=== PATIENT | female | born 1960 | race Caucasian/White ===

== ENCOUNTER 2020-02-24 08:09 | Outpatient (CLI) | payer OTHER, SELFPAY ==
--- NOTE | ~2020-02-24 | US_ITS ---
EXAMINATION: US renal BI DATE: 02/24/2020 08:53 INDICATION: Chronic kidney disease stage III. TECHNIQUE: Multiple ultrasound grayscale images of the kidneys were obtained. COMPARISON: None. FINDINGS: The right kidney measures 9.5 x 4.3 x 4.9 cm. The left kidney measures 10.8 x 5.4 x 3.8 cm. The kidne ys demonstrate normal parenchymal echogenicity. There is no hydronephrosis. The bladder is normal. IMPRESSION: 1. Normal kidneys. No hydronephrosis. Reviewed, dictated and finalized at location B.
== END 2020-02-24 08:10 | disposition home or self-care (01) ==
PROVIDERS: PCP Internal Medicine
DX: N18.3 Chronic kidney disease, stage 3 (moderate) (principal); I12.9 Hypertensive chronic kidney disease with stage 1 through stage 4 chronic kidney disease, or unspecified chronic kidney disease; N25.0 Renal osteodystrophy; E21.1 Secondary hyperparathyroidism, not elsewhere classified; N17.9 Acute kidney failure, unspecified; R32 Unspecified urinary incontinence; R80.9 Proteinuria, unspecified; E79.0 Hyperuricemia without signs of inflammatory arthritis and tophaceous disease; E55.9 Vitamin D deficiency, unspecified; E11.22 Type 2 diabetes mellitus with diabetic chronic kidney disease
CPT/HCPCS: 76775

== ENCOUNTER 2024-07-22 08:28 | Outpatient (CLI) | payer OTHER, SELFPAY ==
--- NOTE | ~2024-07-22 | MM_ITS ---
MM stereotactic bx RT, MM post biopsy diagnostic RT, MM stereotactic bx RT add, MM stereotactic speci men RT EXAMINATION: MM stereotactic bx RT, MM post biopsy diagnostic RT, MM stereotactic bx RT add, MM stere otactic specimen RT DATE: Avtar Guevara M.D. INDICATION: Abnormal mass and calcifications in the right breast. Stereotactic core biopsy is reques pamela evaluate for malignancy.] BREAST PARENCHYMAL COMPOSITION: Not dense: There are scattered areas of fibroglandular density. TECHNIQUE AND FINDINGS: The risks and potential benefits of the procedure were discussed with the patient and written informe d consent was obtained. The patient was placed in the prone position clustered at the table with the right breast in compression, and the area of interest was localized and targeted utilizing digital i maging with stereotaxis. After sterile preparation of the skin, 1% lidocaine was utilized for local anesthesia at the skin pun cture site and 1% lidocaine with epinephrine was utilized for deeper local anesthesia/is about the bi opsy site. A 9G Eviva vacuum assisted biopsy needle was advanced to the level of the mass of interes t from a lateral approach utilizing stereotactic guidance and a total of 6 tissue core biopsies were obtained. Subsequently additional site of calcifications was targeted in 6 specimens were obtained wi thout complication. A specimen radiograph demonstrates that the calcifications of interest are included within the tissue cores. A tissue marker clip was then placed at the biopsy site. The needle was removed and hemosta sis was achieved. The patient tolerated the procedure well and there is no evidence of significant i mmediate complication. The patient was given verbal as well as written postprocedural instructions p rior to discharge from the department. Tissue cores were submitted to surgical pathology for histolo gic analysis. A 2-view right unilateral digital mammogram was obtained post procedure and this demonstrates that th e tissue marker clip is in expected position.] IMPRESSION: 1. Successful stereotactic biopsy of calcifications and mass in the lower outer quadrant of the righ t breast with post procedure mammogram for marker placement. Please refer to pathology report for hi stologic analysis. Reviewed, dictated and finalized at location B. IAGE OPERATOR IMPRESSION: 1. Successful stereotactic biopsy of calcifications and mass in the lower oute r quadrant of the right breast with post procedure mammogram for marker placeme nt. Please refer to pathology report for histologic analysis. IMPRESSION: 1. Successful stereotactic biopsy of calcifications and mass in the lower oute r quadrant of the right breast with post procedure mammogram for marker placeme nt. Please refer to pathology report for histologic analysis. IMPRESSION: 1. Successful stereotactic biopsy of calcifications and mass in the lower oute r quadrant of the right breast with post procedure mammogram for marker placeme nt. Please refer to pathology report for histologic analysis.
== END 2024-07-22 08:29 | disposition home or self-care (01) ==
PROVIDERS: PCP Internal Medicine; Visit Provider Internal Medicine
DX: C50.411 Malignant neoplasm of upper-outer quadrant of right female breast (principal); R92.8 Other abnormal and inconclusive findings on diagnostic imaging of breast
CPT/HCPCS: 19081; 19082; 77065; 88305; 88342; 88360

== ENCOUNTER 2024-12-21 08:30 | Outpatient (CLI) | payer BC, SELFPAY ==
--- OUTSIDE RECORDS SUMMARY | 2024-12-21 08:53 | XMS_ITS ---
Author Organization [facility] Address [address] [place] [address] Care Team Providers Care Bariatric Surgeon Name Role Phone RamezNateGeronimo Unavailable [phone] Medications Medication SIG (Take, Route, Frequency, Duration) Notes Start Date End Date Status Allopurinol 100 MG Take 3 tablets by mo uth once daily for 90 Active Vitamin D (Ergocalciferol) 1.25 MG (51672 UT) TAKE 1 CAPSULE BY MOUTH TWICE A WEEK for 92 Active Vitamin D (Ergocalciferol) 73005 UNIT 1 capsule Orally twice a week for 30 days 04/08/2024 07/06/2024 Active Problems Problem Type SNOMED Code ICD Code Onset Dates Problem Status W/U Status Risk Notes Problem Renal osteodystrophy (01334461) Renal osteodystrophy (N25.0) Active confirmed Encounters Encounter Location Date Provider Diagnosis [place] [facility] [address] [facility] [address] [place] [address] 06/24/2024 Geronimo Myrick Chronic kidney disea se, stage 3b N18.32 ; Essential (primary) hypertension I10 ; Type 2 diabetes mellitus with hyperglycemia E11.65 ; Renal osteodystrophy N25.0 ; Other microscopic hematuria R31.29 and Vitamin D deficiency, unspecified E55.9 Assessments Encounter Date Diagnosis (ICD Code) Assessment Notes Treatment Notes Treatment Clinical Notes Section Notes 06/24/2024 Chronic kidney disease, stage 3b (ICD-10 - N18.32) 06/24/2024 Essential (primary) hypertension (ICD-10 - I10) 06/24/2024 Type 2 diabetes mellitus with hyperglycemia (ICD-10 - E11.65) 06/24/2024 Renal osteodystrophy (ICD-10 - N25.0) 06/24/2024 Other microscopic hematuria (ICD-10 - R31.29) 06/24/2024 Vitamin D deficiency, unspecified (ICD-10 - E55.9) Plan Of Treatment No Information Progress Notes * AUDREY BLUNTDOB:1960 (64 yo F)Acc No.[id number]:06/24/2024 Progress Notes Patient: AUDREY BROWER Provider: Delfino LAWSON MD, F.Francesca.C.P, F.A.S.N. :1960 A ge:64 Y S ex:Female Date:06/24/2024 Address:[address] [place] [address] Subjective: * Chief Complaints: * * Medical History: * Medications: T aking Vitamin D (Ergocalciferol) 68796 UNIT Capsule 1 capsule Orally twice a week , stop date 07/06/2024, Taking Vitamin D (Ergocalciferol) 1.25 MG (55537 UT) Capsule TAKE 1 CAPSULE BY MOUTH TWICE A WEEK , Taking Allopurinol 100 MG Tablet Take 3 tablets by mouth once daily Objective: * Vitals: Assessment: * Assessment: 1. C hronic kidney disease, stage 3b - N18.32 2 . E ssential (primary) hypertension - I10 3 . T ype 2 diabetes mellitus with hyperglycemia - E11.65 ? 4 . R enal osteodystrophy - N25.0 5 . O ther microscopic hematuria - R31.29 6 . V itamin D deficiency, unspecified - E55.9 Plan: * Treatment: * Billing Information: * Visit Code: 74071 Office Visit, Est Pt., Level 4. * Procedure Codes: * Electronic signature of Rosa Myrick MD on 12/21/2024 at 08:52 AM CDT Sign off status: Pending * Provider: Delfino LAWSON MD, F.A.C.P, F.A.S.N. Date: 08/25/2023 Generated for Printing/Faxing/eTransmitting on: 0 12/21/2024 08:52 AM CDT
--- OUTSIDE RECORDS SUMMARY | 2024-12-21 08:53 | XMS_ITS | Patient Health Record ---
Author Organization [facility] Address [address] [place] [address] Care Team Providers Care Promotions Coordinator Name Role Phone Geronimo Myrick Unavailable [phone] Reason For Referral No Information Medications Medication SIG (Take, Route, Frequency, Duration) Notes Start Date End Date Status Allopurinol 100 MG Take 3 tablets by mo uth once daily for 90 Active Ergocalciferol 1.25 MG (89383 UT) 1 capsule Orally Once a week for 90 days 09/25/2024 08/21/2025 Active Vitamin D (Ergocalciferol) 1.25 MG (83028 UT) TAKE 1 CAPSULE BY MOUTH TWICE A WEEK for 92 Active Problems Problem Type SNOMED Code ICD Code Onset Dates Problem Status W/U Status Risk Notes Problem Hyperglycemia due to type 2 diabetes mellitus (289187775302623) Type 2 diabetes mellitus with hyperglycemia (E11.65) Active confirmed Problem Vitamin D deficiency (17493461) Vitamin D deficiency, unspecified (E55.9) Active confirmed Problem Hyperuricemia withou t signs of inflammatory arthritis and tophaceous disease (306106536) Hyperuricemia without signs of inflammatory arthritis and tophaceous disease (E79.0) Active confirmed Problem Essential hypertension (35345801) Essential (primary) hypertension (I10) Active confirmed Problem Renal osteodystrophy (25287098) Renal osteodystrophy (N25.0) Active confirmed Problem Secondary hyperparathyroidism of renal origin (75502934) Secondary hyperparathyroidism of renal origin (N25.81) Active confirmed Problem Urinary tract infectious disease (disorder) (38722979) Urinary tract infection, site not specified (N39.0) Active confirmed Problem Thyroid function tests abnormal (714473470) Abnormal results of thyroid function studies (R94.6) Active confirmed Problem Microscopic hematuri a (866148812) Other microscopic hematuria (R31.29) Active confirmed Problem Chronic kidney disease stage 3A (disorder) (400626392) Chronic kidney disease, stage 3a (N18.31) Active confirmed Encounters Encounter Location Date Provider Diagnosis [place] [facility] [address] [address] 04/08/2024 Geronimo Myrick Chronic kidney disea se, stage 3a N18.31 ; Essential (primary) hypertension I10 ; Other microscopic hematuria R31.29 ; Chronic kidney disease, stage 2 (mild) N18.2 ; Hyperuricemia without signs of inflammatory arthritis and tophaceous disease E79.0 ; Type 2 diabetes mellitus with hyperglycemia E11.65 ; Vitamin D deficiency, unspecified E55.9 and Urinary tract infection, site not specified N39.0 [place] [facility] [address] [place] [address] 06/24/2024 Geronimo Myrick Chronic kidney disea se, stage 3b N18.32 ; Essential (primary) hypertension I10 ; Type 2 diabetes mellitus with hyperglycemia E11.65 ; Renal osteodystrophy N25.0 ; Other microscopic hematuria R31.29 and Vitamin D deficiency, unspecified E55.9 [place] [facility] [address] [address] 09/25/2024 Geronimo Myrick Chronic kidney disea se, stage 3a N18.31 ; Essential (primary) hypertension I10 ; Other microscopic hematuria R31.29 ; Renal osteodystrophy N25.0 ; Secondary hyperparathyroidism of renal origin N25.81 ; Hyperuricemia without signs of inflammatory arthritis and tophaceous disease E79.0 ; Type 2 diabetes mellitus with hyperglycemia E11.65 ; Vitamin D deficiency, unspecified E55.9 ; Urinary tract infection, site not specified N39.0 and Abnormal results of thyroid function studies R94.6 [place] [facility] [address] [address] 09/25/2024 Geronimo Myrick [facility] [address] [place] [address] 11/24/2024 Geronimo Myrick [facility] [place] [facility] [address] [place] [address] 11/24/2024 Geronimo Myrick [place] [facility] [address] [place] [id number] 04/08/2024 Geronimo Myrick Assessments Encounter Date Diagnosis (ICD Code) Assessment Notes Treatment Notes Treatment Clinical Notes Section Notes 04/08/2024 Essential (primary) hypertension (ICD-10 - I10) 04/08/2024 Chronic kidney disea se, stage 3a (ICD-10 - N18.31) 06/24/2024 Chronic kidney disea se, stage 3b (ICD-10 - N18.32) 09/25/2024 Chronic kidney disea se, stage 3a (ICD-10 - N18.31) 09/25/2024 Essential (primary) hypertension (ICD-10 - I10) 06/24/2024 Essential (primary) hypertension (ICD-10 - I10) 04/08/2024 Other microscopic hematuria (ICD-10 - R31.29) 04/08/2024 Chronic kidney disea se, stage 2 (mild) (ICD-10 - N18.2) 06/24/2024 Type 2 diabetes mellitus with hyperglycemia (ICD-10 - E11.65) 09/25/2024 Other microscopic hematuria (ICD-10 - R31.29) 09/25/2024 Renal osteodystrophy (ICD-10 - N25.0) 06/24/2024 Renal osteodystrophy (ICD-10 - N25.0) 04/08/2024 Hyperuricemia withou t signs of inflammatory arthritis and tophaceous disease (ICD-10 - E79.0) 04/08/2024 Type 2 diabetes mellitus with hyperglycemia (ICD-10 - E11.65) 06/24/2024 Other microscopic hematuria (ICD-10 - R31.29) 09/25/2024 Secondary hyperparathyroidism of renal origin (ICD-10 - N25.81) 09/25/2024 Hyperuricemia withou t signs of inflammatory arthritis and tophaceous disease (ICD-10 - E79.0) 06/24/2024 Vitamin D deficiency , unspecified (ICD-10 - E55.9) 04/08/2024 Vitamin D deficiency , unspecified (ICD-10 - E55.9) 04/08/2024 Urinary tract infection, site not specified (ICD-10 - N39.0) 09/25/2024 Type 2 diabetes mellitus with hyperglycemia (ICD-10 - E11.65) 09/25/2024 Vitamin D deficiency , unspecified (ICD-10 - E55.9) 09/25/2024 Urinary tract infection, site not specified (ICD-10 - N39.0) 09/25/2024 Abnormal results of thyroid function studies (ICD-10 - R94.6) Plan Of Treatment No Information
--- OUTSIDE RECORDS SUMMARY | 2024-12-21 08:53 | XMS_ITS ---
Author Organization [facility] Address [address] [facility] [address] [place] [address] Care Team Providers Care Records Associate Name Role Phone Ramez Geronimo Unavailable [phone] Encounters Encounter Location Date Provider Diagnosis [place] [facility] [address] [place] [address] 12/09/2024 Geronimo Myrick Plan Of Treatment No Information Progress Notes * AUDREY BLUNTDOB:1960 (64 yo F)Acc No.[id number]:12/09/2024 Progress Notes Patient: AUDREY BROWER Provider: Delfino LAWSON MD, Britany.Francesca.C.P, F.A.S.N. :1960 A ge:64 Y S ex:Female Date:12/09/2024 Address:[address] [place] [address] Subjective: * Chief Complaints: * * Medical History: Objective: * Vitals: Assessment: Plan: * Treatment: * Billing Information: * Visit Code: * Procedure Codes: * Electronic signature of Rosa Myrick MD on 12/21/2024 at 08:52 AM CDT Sign off status: Pending * Provider: Delfino LAWSON MD, Britany.Francesca.C.P, F.A.S.N. Date: 12/09/2024 Generated for Printing/Faxing/eTransmitting on: 12/21/2024 08:52 AM CDT
--- OUTSIDE RECORDS SUMMARY | 2024-12-21 08:53 | XMS_ITS | Data Portability ---
Author Organization [place] - [facility] [employer], Main Office Address [address] [place] [address] Assessment Encounter Date Assessment Date Assessment LastModified by Organization Details LastModified Time 12/11/2023 12/11/2023 This note is dictated and transcribed by [employer]. Clinical Audiologist variances may occur. Despite proofreading, typographical errors may occur. Occasional wrong-word or 'lbwdk-s-mmpd' substitutions may have occurred due to the inherent limitations of voice recording. Read the chart carefully and recognize, using context, where substitutions have occurred. Not available 12/11/2023 09:46:50 12/25/2023 12/25/2023 This note is dictated and transcribed by [employer]. Clinical Audiologist variances may occur. Despite proofreading, typographical errors may occur. Occasional wrong-word or 'tyzia-t-oexm' substitutions may have occurred due to the inherent limitations of voice recording. Read the chart carefully and recognize, using context, where substitutions have occurred. Not available 12/25/2023 10:12:18 Plan of Treatment Reminders Order Date Submit Date Provider Last Modified By Organization Details Last Modified Time Details Appointments Any 15 2024 09:45A M Mitul Ding MD Not available Not available Not available Lab CMP, serum or plasma 2023 024 [email or web address] [facility] (Lab), [address] [place], [address], 09/22/2024 16:25:17 lipid panel, serum 2023 024 [email or web address] [facility] (Lab), [address] [place], [address], 11/25/2024 09:58:42 Referral None recorded. Procedures stereotac tic breast biopsy (PROC) 2023 024 [facility] (Mammography) , [address] [place], [address], 07/22/2024 18:11:10 Surgeries None recorded. Imaging MAMMO, screening , digital, bilateral 2023 024 [email or web address] [facility] (One Call Scheduling), [address] [place], [address], 04/14/2024 10:05:55 Medication Orders Mounjaro 2.5 mg/0.5 mL subcutane ous pen injector 2023 024 [email or web address] [facility], [address] [facility], [place], [address], 03/10/2024 15:20:40 Patient TargetsNo targets recorded. Patient InstructionsNo instructions recorded. Reason for Referral None Reported. Results Created Date Observation Date Name Description Value Unit Range Abnormal Flag Note LastModifiedBy Organization Detail LastModifiedTime 09/23/1909/22/2024 APTT APTT 29.1 secon ds 22.7-3 0.2 Not Available [facility] (Lab) [address] [place], [address], 09/22/2024 12:19:57 09/23/1909/22/2024 PROTI ME W/INR protime 10.3 secon ds 9.7-12 .2 Not Available [facility] (Lab) [address] [place], [address], 09/22/2024 12:20:03 09/23/19 25 09/22/2024 PROTI ME W/INR INR 0.9 INR INDIC ATION S 2.0 - 3.0 PROPH YLAXI S: VENOU S THROM BOSIS (HIGH RISK SURGE RY) AND SYSTE LINDSEY EMBOL ISM (TISS UE HEART VALVE S, AMI VALVU LAR HEART DISEA SE AND ATRIA L FIBRI LLATI ON). TREAT MENT: VENOU S THROM BOSIS AND PULMO NARY EMBOL ISM BILEA FLET MECHA NICAL VALVE S IN AORTI C POSIT ION. 2.5 - 3.5 MECHA NICAL PROST HETIC HEART VALVE S (TILT ING DISK VALVE S AND BILEA FLET MECHA NICAL VALVE S IN JEREMY L POSIT ION). PREVE NTION OF RECUR RENT MYOCA RDIAL INFAR CTION . ANTIP HOSPH OLIPI D SYNDR OME. Not Available [facility] (Lab) [address] [facility], [place], [address], 09/22/2024 12:20:03 04/20/20 24 04/20/2024 scree valerie breas t jaimie, bilat [facility] [address] [place] [address] [phone] Patien t Name: KAYLYN CLARKE [facility] ion #: [id number] Sex: F : 1959 0 Dictat ed By: Lan marvin Attend ing Physic neisha: DANIELLE DING Orderi Physic neisah: DANIELLE DING Exam Date: 2023 07:16 AM Exam Name: MG SCRN BREAST JAIIME BILAT Admitt ing Diagno sis(es ): PROCED URE: SCREEN ING MAMMOG ANGI WITH TOMOSY NTHESI S REASON FOR EXAM: screen ing mammog angi. Person al histor y of prior bilate ral benign surgic al biopsi es. Family histor y of breast cancer in her aunt at age 59. COMPAR BRIDGETT: MG SCRN BREAST JAIMIE BILAT on DOS: 3, MG SCRN BREAST JAIMIE BILAT 3D on DOS: 2, MG SCRN BREAST JAIMIE BILAT 3D on DOS: 01/18/21 TECHNI QUE: Bilate ral CC and MLO views obtain ed. Images were obtain ed using a Digita l Tomosy nthesi s Unit. Standa rd 2D and 3D Tomosy nthesi s images were review ed. FINDIN GS: BREAST COMPOS ITION: B - There are scatte red areas of fibrog landul ar densit y. In the right breast , there is a group of calcif icatio ns in the right outer breast near the 9 o'cloc k positi on, anteri or to mid depth, for which furthe r evalua tion with spot magnif icatio n views and true latera l view is needed . There is an adjace nt asymme try in the right outer breast , for which spot compre ssion views and ultras ound are recomm ended. In the left breast , no asymme trical parenc hymal patter n, cassandra ectura l distor tion, pleomo rphic microc alcifi cation s or masses . IMPRES SHILPI: Incomp lete examin ation. Additi onal imagin g needed . RECOMM ENDATI ON: Recomm end right breast diagno stic mammog angi (right spot magnif icatio n ML, right spot magnif icatio n CC, right spot compre ssion CC, Page 1 [facility] [place] [address] [phone] Patien t Name: KAYLYN CLARKE [facility] ion #: [id number] Sex: F : 1959 0 Dictat ed By: Lan marvin Attend ing Physic neisha: BEAR KHANNA Physic neisha: DANIELLE DING ER Exam Date: 2023 07:16 AM Exam Name: MG SCRN BREAST JAIMIE BILAT Admitt ing Diagno sis(es ): right spot compre ssion MLO, right ML) and right breast ultras ound. ASSESS MENT: BIRADS : 0 - Incomp lete - Need additi onal imagin g evalua tion Electr onical ly Signed by: Lan marvin at 2023 07:26: 46 AM Page 2 [email or web address] [facility] (Imaging) [address] [place] [address], [address], 04/22/2024 11:33:06 06/08/20 24 06/08/2024 US, breas t, unila teral [facility] [address] [place] [address] Maryanne zacarias Name: KAYLYN CLARKE ion #: [id number] Sex: F : 1959 4 Dictat ed By: Lan marvin Attend ing Physic neisha: DANIELLE DING ER Orderi ng Physic neisha: DANIELLE DING ER Exam Date: 2023 09:17 AM Exam Name: US BREAST LIMITE D RT Admitt ing Diagno sis(es ): PROCED URE: US BREAST LIMITE D RT REASON FOR EXAM: abnorm al mammog angi COMPAR BRIDGETT: MG SCRN BREAST JAIMIE BILAT on DOS: 4, MG SCRN BREAST JAIMIE BILAT on DOS: 3, MG SCRN BREAST JAIMIE BILAT 3D on DOS: 2 TECHNI QUE: ML, spot compre ssion cranio caudal and modifi ed mediol ateral obliqu e views of the right breast are obtain ed utiliz ing digita l mammog raphic images obtain ed using a 2D mammog raphic system . Limite d right breast ultras ound was perfor med, to evalua te the focal asymme try in the right outer, slight ly upper breast , mid depth, adjace nt to the calcif icatio ns. FINDIN GS: BREAST COMPOS ITION: B - There are scatte red areas of fibrog landul ar densit y. Spot compre ssion views demons trate persis tence of the focal asymme try in the right outer, slight ly upper breast , adjace nt to the calcif icatio ns. Spot magnif icatio n views of the right breast demons trate some fine pleomo rphic and coarse hetero geneou s calcif icatio ns, some of which demons trate possib le ductal distri bution . Target ed ultras ound images of the breast demons trate a well-c ircums cribed smooth ly margin ated hypoec hoic mass in the 10 o'cloc k positi on approx imatel y 5 cm from the nipple measur ing 0.6 x 0.3 x 0.7 cm. There is a small hypoec hoic mass in the 11 o'cloc k positi on of the right breast approx imatel y 6 cm from the nipple measur ing up to 0.35 cm in r [facility] ion. Hypoec hoic mass in the 11 o'cloc k positi on approx imatel y 5 cm from the nipple measur es up to 0.4 cm in r [facility] ion, with somewh at lobula pamela margin s. Page 1 [facility] [address] [place] [address] [phone] Patien t Name: KAYLYN CLARKE ion #: [id number] Sex: F : 1959 4 Dictat ed By: Lan Schaffer ing Physic neisha: BEAR KHANNA Physic neisha: DANIELLE DING ER Exam Date: 2023 09:17 AM Exam Name: US BREAST LIMITE D RT Admitt ing Diagno sis(es ): There is also a hypoec hoic mass in the 12 o'cloc k positi on approx imatel y 2 cm from the nipple measur ing up to 0.6 x 0.3 x 0.6 cm, with smooth , well-c ircums cribed margin s. There is focal shadow ing calcif icatio n in the 12 o'cloc k positi on approx imatel y 2 cm from the nipple , appear s to correl ate with focal dystro phic calcif icatio n on mammog angi IMPRES SHILPI: 1. The right breast calcif icatio ns are suspic ious. The adjace nt focal asymme try in the right breast is also suspic ious, uncert ain correl ate on ultras ound. 2. Multip le small masses are seen in the right breast , some of which have benign featur es. The lobula pamela lesion in the 11 o'cloc k positi on approx imatel y 5 cm from the nipple possib ly correl ates with the focal asymme try seen on mammog angi, althou gh this is uncert ain RECOMM ENDATI ON: 1. Recomm end stereo tactic guided biopsy . Recomm end biopsy of the calcif icatio ns as well as the adjace nt focal asymme try given the uncert ain correl ate on ultras ound. 2. The rest of the nodule s in the right breast could be follow ed up in 6-tremaine hs with diagno stic mammog angi and ultras ound, althou gh this recomm endati on may change to breast MRI depend ing on biopsy result s of the calcif icatio ns and adjace nt focal asymme try in the right breast . ASSESS MENT: BIRADS : 4 - Suspic ious for Malign joaquin Electr onical ly Signed by: Lan marvin at 2023 08:21: 35 AM Page [address] ([facility] Call Scheduling) [address] [place], [address], 06/23/2024 14:50:56 06/08/20 24 06/08/2024 MAMMO , diagn ostic , digit al, unila teral , w/ CAD [facility] [address] [address] Patien t Name: KAYLYN CLARKE Access ion #: [id number] Sex: F : 1959 4 Dictat ed By: Lan marvin Attend ing Physic neisha: DAINELLE DING ER Orderi Physic neisha: DANIELLE DING ER Exam Date: 2023 09:03 AM Exam Name: MG MAMMO DIGITA L UNILAT RT Admitt ing Diagno sis(es ): PROCED URE: MG MAMMO DIGITA L UNILAT RT REASON FOR EXAM: abnorm al mammog angi COMPAR BRIDGETT: MG SCRN BREAST JAIMIE BILAT on DOS: 4, MG SCRN BREAST JAIMIE BILAT on DOS: 3, MG SCRN BREAST JAIMIE BILAT 3D on DOS: 2 TECHNI QUE: ML, spot compre ssion cranio caudal and modifi ed mediol ateral obliqu e views of the right breast are obtain ed utiliz ing digita l mammog raphic images obtain ed using a 2D mammog raphic system . Limite d right breast ultras ound was perfor med, to evalua te the focal asymme try in the right outer, slight ly upper breast , mid depth, adjace nt to the calcif icatio ns. FINDIN GS: BREAST COMPOS ITION: B - There are scatte red areas of fibrog landul ar densit y. Spot compre ssion views demons trate persis tence of the focal asymme try in the right outer, slight ly upper breast , adjace nt to the calcif icatio ns. Spot magnif icatio n views of the right breast demons trate some fine pleomo rphic and coarse hetero geneou s calcif icatio ns, some of which demons trate possib le ductal distri bution . Target ed ultras ound images of the breast demons trate a well-c ircums cribed smooth ly margin ated hypoec hoic mass in the 10 o'cloc k positi on approx imatel y 5 cm from the nipple measur ing 0.6 x 0.3 x 0.7 cm. There is a small hypoec hoic mass in the 11 o'cloc k positi on of the right breast approx imatel y 6 cm from the nipple measur ing up to 0.[address] [facility] ion. Hypoec hoic mass in the 11 o'cloc k positi on approx imatel y 5 cm from the nipple measur es up to 0.[address] [facility] ion, with somewh at lobula pamela margin s. Page 1 [facility] [address] [place] [address] [phone] Patinieves t Name: KAYLYN CLARKE [facility] ion #: [id number] Sex: F : 1959 4 Dictat ed By: Lan marvin Attend ing Physic neisha: BEAR KHANNA Physic neisha: DANIELLE DING Exam Date: 2023 09:03 AM Exam Name: MG MAMMO RASHEED L UNILAT RT Admitt ing Diagno sis(es ): There is also a hypoec hoic mass in the 12 o'cloc k positi on approx imatel y 2 cm from the nipple measur ing up to 0.6 x 0.3 x 0.6 cm, with smooth , well-c ircums cribed margin s. There is focal shadow ing calcif icatio n in the 12 o'cloc k positi on approx imatel y 2 cm from the nipple , appear s to correl ate with focal dystro phic calcif icatio n on mammog angi IMPRES SHILPI: 1. The right breast calcif icatio ns are suspic ious. The adjace nt focal asymme try in the right breast is also suspic ious, uncert ain correl ate on ultras ound. 2. Multip le small masses are seen in the right breast , some of which have benign featur es. The lobula pamela lesion in the 11 o'cloc k positi on approx imatel y 5 cm from the nipple possib ly correl ates with the focal asymme try seen on mammog angi, althou gh this is uncert ain RECOMM ENDATI ON: 1. Recomm end stereo tactic guided biopsy . Recomm end biopsy of the calcif icatio ns as well as the adjace nt focal asymme try given the uncert ain correl ate on ultras ound. 2. The rest of the nodule s in the right breast could be follow ed up in 6-tremaine hs with diagno stic mammog angi and ultras ound, althou gh this recomm endati on may change to breast MRI depend ing on biopsy result s of the calcif icatio ns and adjace nt focal asymme try in the right breast . ASSESS MENT: BIRADS : 4 - Suspic ious for Malign joaquin Electr onical ly Signed by: Lan marvin at 2023 08:26: 58 AM Page 3 [email or web address] [facility] (Imaging) [address] [place], [address], 06/23/2024 14:50:57 07/22/19 25 07/22/2024 stere otact ic breas t biops y (PROC ) No observ ation record ed. [email or web address] [facility] (Mammography) [address], [place], [address], 07/29/2024 12:59:15 07/28/19 25 07/22/2024 stere otact ic breas t biops y (PROC ) No observ ation record ed. BARCODE [facility] (Mammography) [address], [place], [address], 07/28/2024 13:43:10 11/20/19 25 11/19/2024 biops y, breas t, MRI guide d (PROC ) No observ ation record ed. [email or web address] Not Available 2024 11:23:24 Result Notes None recorded. Problems Name Problem SNOMED Code Status Onset Date Resolution Date Notes Provider Name and Address Organization Details Recorded Time Recurrent urinary tract infection 594271759 Active 2022 Not Available [facility] 3 06:08:55 Urinary incontine nce 455322973 Active Not Available [facility] 3 06:08:55 Asthma 137179218 Active Not Available [facility] 3 06:08:55 Menopausa l and postmenop ausal disorders 632841307 Active 2019 Not Available [facility] 3 06:08:55 Edema 412451597 Active 2019 Not Available [facility] 3 06:08:55 Hypertrig lyceridem ia 880468115 Active 2019 Not Available [facility] 3 06:08:55 Osteopeni a 762267755 Active 2020 Not Available [facility] 3 06:08:55 Vitamin D deficienc y 90184329 Active 2019 Not Available [facility] 3 06:08:55 Onychomyc osis of toenails 956739920 Active 2021 Not Available [facility] 3 06:08:55 Onychomyc osis of toenails 123424782 Completed 202106/15/2022 [facility] Available [facility] 02:55:04 Obesity 638384985 Active Not Available [facility] 3 06:08:55 Onychomyc osis 039710904 Completed 202106/15/2022 Not Available [facility] 3 02:55:04 Acute urinary tract infection 355946065 Completed 202106/15/2022 Not Available [facility] 3 02:55:04 Hyperlipi demia 61440405 Active 2019 Not Available [facility] 3 06:08:55 Essential hypertens ion 75856998 Active Not Available [facility] 3 06:08:55 Allergic rhinitis 20081860 Active 2019 Not Available [facility] 3 06:08:55 Prediabet es 619239970 Active 2019 Not Available [facility] 3 06:08:55 Diabetes mellitus 65819683 Active 2021 NABEEL Perez, [place] [facility] 5 15:05:19 Gout 78540944 Active 2021 Not Available [facility] 3 06:08:55 Kidney disease 97232425 Active 2019 Not Available [facility] 3 06:08:55 Pain of left ankle joint 46350717164 087161 Active 2022 Not Available [facility] 3 06:08:55 Yeast detected 318174754 Active 2022 Not Available [facility] 3 06:08:55 Arthritis 2741025 Active 2022 Not Available [facility] 3 06:08:55 Fibromyal luana 653256832 Active 2022 Not Available [facility] 3 06:08:55 Headache 20645609 Active 2022 Not Available [facility] 3 06:08:55 Sleep disorder 60566002 Active 2022 Not Available [facility] 3 06:08:55 Mass of soft tissue of left lower limb 92261342724 543243 Active 2022 Not Available [facility] 3 06:08:55 Mass of soft tissue of right lower limb 69367250184 816267 Active 2022 Not Available [facility] 3 06:08:55 Tendiniti s of left posterior tibial tendon 05594007458 9100 Active 2022 Not Available [facility] 3 06:08:55 Pain in both feet 32197696257 016918 Active 2022 Not Available [facility] 3 06:08:55 Congenita l pes planus 80173439 Active 2022 Not Available [facility] 3 06:08:55 Dystrophi a unguium 79966412 Active 2022 Not Available [facility] 3 06:08:55 Urinary symptoms 283509522 Active 2022 Not Available [facility] 3 06:08:55 Melanocyt ic nevus 536974386 Active 2022 Not Available [facility] 3 06:08:55 Candidias is of vagina 36851456 Active 2022 Not Available [facility] 3 06:08:55 Lipoma of skin 772018433 Active 2022 Not Available [facility] 3 06:08:55 Sleep apnea 25197878 Active 2023 Mitul Ding MD [address], [place], [address] , [facility] 4 11:31:35 Mass of soft tissue 834761109 Active 2023 José New DPM [address], [place], [address] , [facility] 4 09:11:38 Mass of soft tissue 383617060 Active 2023 José New DPM [address], [place], [address] , [facility] [place] [employer] [facility] 4 09:11:47 Soft tissue lesion of lower leg and ankle 482946119 Active 2023 José New DPM [address], [place], [address] , [facility] [employer] [facility] 4 09:12:43 Postopera tive care Active 2023 José New DPM [address], [place], [address] , [facility] [employer] [facility] [employer] [facility] 4 09:15:50 Celluliti s of right foot 20222912007 853030 Active 2023 José New DPM [address], [place], [address] , [facility] [employer] [facility] [employer] [facility] 4 10:19:36 Hematoma of left foot 87428893467 772274 Active 2023 José New DPM [address], [place], [address] , [facility] [employer] [facility] [employer] [facility] 4 11:49:21 Hematoma of right foot 59141423978 091794 Active 2023 José New DPM [address], [place], [address] , [facility] [employer] [facility] [employer] [facility] 4 11:49:27 Celluliti s of left foot 59685113790 115722 Active 2023 José New DPM [address], [place], [address] , [facility] [employer] [facility] 4 11:51:41 Dehiscenc e of surgical wound 70318577 Active 2023 José New DPM [address], [place], [address] , [facility] [employer] [facility] 4 16:21:04 Mammograp hy abnormal 243666200 Active 2023 Lala Solano LPN null, [facility] [employer] [facility] 4 11:33:23 Mass of right breast 47265464033 836049 Active 2024 Lala Solano LPN null, [facility] [employer] [facility] 5 10:02:45 Malignant tumor of breast 940711778 Active 2024 Mitul Ding MD [address], [place], [address] , [facility] [employer] [facility] 5 10:16:04 Notes:BACK/NECK PROBLEM, JOY AST PROBLEM, EYE PROBLEMS, Problem Notes None recorded. Procedures Surgical History Date Name Laterality Status Provider Name and Address Organization Details Recorded Time 12/25/19 Wound Care-Podiatry completed Nathalia Yao RN [facility] 12/25/2023 09:43:42 12/11/19 24 Wound Care-Podiatry completed José New DPM [address], [place], [address], [facility] [employer] [facility] 12/11/2023 09:46:42 11/27/19 24 Wound Care-Podiatry completed Shae James RN [facility] 11/27/2023 10:42:49 11/20/19 24 Wound Care-Podiatry completed José New DPM [address], [place], [address], [facility] 11/20/2023 10:04:25 11/06/19 24 Wound Care-Podiatry completed José New DPM [address], [place], [address], [facility] 11/06/2023 10:05:50 10/30/19 24 Wound Care-Podiatry completed José New DPM [address], [place], [address], [facility] [employer] [facility] 10/30/2023 10:13:47 10/21/19 24 Wound Care-Podiatry completed Shae James RN [facility] 10/22/2023 12:26:47 10/16/19 24 Wound Care-Podiatry completed José New DPM [address], [place], [address], [facility] [employer] [facility] 10/16/2023 10:13:28 10/14/19 24 Wound Care-Podiatry completed Jacques Shetty RN [facility] [employer] [facility] 10/14/2023 10:10:39 10/09/19 24 Wound Care-Podiatry completed José New DPM [address], [address], [place], [address], [facility] [employer] [facility] 10/09/2023 09:29:32 10/07/19 24 Wound Care-Podiatry completed Jacques Shetty RN [facility] [employer] [facility] 10/07/2023 10:02:24 10/02/19 24 Wound Care-Podiatry completed Jacques Shetty RN [facility] [employer] [facility] 10/02/2023 15:21:47 09/25/19 24 Wound Care-Podiatry completed Jacques Shetty RN [facility] [employer] [facility] 09/25/2023 16:11:23 09/12/19 24 Blank Procedure Note completed José New DPM [address], [place], [address], [facility] [employer] [facility] 09/12/2023 11:48:05 06/13/20 23 Blank Procedure Note completed José New DPM [address], [place], [address], [facility] [employer] [facility] 06/13/2023 10:38:18 06/03/20 18 Cholecystectomy completed Not Available [facility] 09/12/2022 02:48:31 Tubal Ligation completed Not Available [facility] 09/12/2022 02:48:31 Breast Biopsy completed Not Available [facility] 09/12/2022 02:48:31 Imaging Results None recorded. Procedure Notes None recorded. Medical Equipment None Reported. Allergies No known drug allergies Medications Name Sig Start Date Stop Date Status Note LastModified by Organization Details LastModified Time furosemid e 40 mg tablet Take 1 tablet by mouth once daily 06/05/ 2025 active Not Available Not Available Not Avai lable anastrozo le 1 mg tablet TAKE 1 TABLET BY MOUTH ONCE DAILY active Not Available Not Available No t Available doxycycli ne hyclate 100 mg capsule TAKE 1 CAPSULE BY MOUTH TWICE DAILY active Not Available Not Available No t Available oxybutyni n chloride ER 10 mg tablet,ex tended release 24 hr TAKE 1 BY MOUTH DAILY 10/04 completed Not Available Not Available Not Available metoprolo l tartrate 100 mg tablet Take 1 tablet by mouth twice daily 2024 active Not Available Not Available Not Avai lable fluconazo le 150 mg tablet TAKE ONE TABLET BY MOUTH NOW 07/13 completed Not Available Not Available Not Available hydrocodo ne 5 mg-acetam inophen 325 mg tablet TAKE 1 TABLET BY MOUTH EVERY 6 HOURS NEEDED active Not Available Not Available No t Available meloxicam 15 mg tablet TK 1 T PO QD 01/31 completed Not Available Not Available Not Available lisinopri l 20 mg tablet Take 1 tablet in AM and One in the PM every day 2024 active Not Available Not Available Not Avai lable Medrol (Akash) 4 mg tablets in a dose pack take as directed on the package 05/31 completed Not Available Not Available Not Available hydralazi ne 25 mg tablet 09/29 completed Not Available Not Available Not Available potassium chloride ER 10 mEq tablet,ex tended release TAKE 1 TABLET BY MOUTH TWICE DAILY WITH MEALS active Not Available Not Available No t Available metronida zole 500 mg tablet Take 1 tablet twice a day by oral route for 7 days. 09/17 completed Not Available Not Available Not Available allopurin ol 100 mg tablet TAKE 3 TABLETS BY MOUTH ONCE DAILY active Not Available Not Available No t Available ciproflox acin 500 mg tablet Take 1 tablet every 12 hours by oral route for 7 days. 09/17 completed Not Available Not Available Not Available omeprazol e 40 mg capsule,d elayed release TK ONE C PO ONCE DAILY 05/21 completed Not Available Not Available Not Available ondansetr on 8 mg disintegr ating tablet DISSOLVE 1 TABLET IN MOUTH EVERY 8 HOURS NEEDED FOR NAUSEA active Not Available Not Available No t Available glimepiri de 1 mg tablet TAKE 2 TABLETS BY MOUTH INTHE MORNING AND ONE TABLET IN THE EVENING active Not Available Not Available No t Available oxycodone -acetamin ophen 5 mg-325 mg tablet 09/29 completed Not Available Not Available Not Available terbinafi ne HCl 250 mg tablet Take 1 tablet every day by oral route. 09/17 completed Not Available Not Available Not Available metoclopr amide 5 mg tablet 09/29 completed Not Available Not Available Not Available simvastat in 20 mg tablet Take 1 tablet by mouth once daily 2024 active MELINDA 06/16/24 NOV 10/15/24 ok to rf Not Available Not Available Not Available lisinopri l 10 mg tablet 06/06 completed Not Available Not Available Not Available metoprolo l tartrate 50 mg tablet 05/21 completed Not Available Not Available Not Available oxybutyni n chloride ER 5 mg tablet,ex tended release 24 hr Take 1 tablet every day by oral route. active Not Available Not Available No t Available omeprazol e 20 mg capsule,d elayed release 10/04 completed Not Available Not Available Not Available monteluka st 10 mg tablet TAKE 1 TABLET BY MOUTH ONCE DAILY IN THE EVENING active Not Available Not Available No t Available hydralazi ne 50 mg tablet TAKE 1 TABLET BY MOUTH THREE TIMES DAILY WITH FOOD 01/22 completed Not Available Not Available Not Available hydrochlo rothiazid e 25 mg tablet TAKE 1 TABLET BY MOUTH ONCE DAILY IN THE MORNING FOR 30 DAYS 02/01 completed Not Available Not Available Not Available ergocalci ferol (vitamin D2) 1,250 mcg (50,000 unit) capsule TAKE 1 CAPSULE BY MOUTH ONCE A WEEK FOR 90 DAYS active Not Available Not Available No t Available ketoconaz ole 2 % topical cream APPLY TO THE AFFECTED AREA(S) TOENAIL TOPICALL Y ONCE DAILY 11/04 completed Not Available Not Available Not Available oxybutyni n chloride 5 mg tablet Take 1 tablet twice a day by oral route. active called to [facility] Not Available Not Available Not Available lisinopri l 40 mg tablet TAKE 1 TABLET BY MOUTH ONCE DAILY 11/16 completed Not Available Not Available Not Available sertralin e 50 mg tablet 09/29 completed Not Available Not Available Not Available doxycycli ne hyclate 100 mg tablet Take 1 tablet twice a day by oral route as directed for 10 days. 09/29 completed Not Available Not Available Not Available metoclopr amide 10 mg tablet 09/29 completed Not Available Not Available Not Available amoxicill in 875 mg-potass ium clavulana te 125 mg tablet 09/29 completed Not Available Not Available Not Available amoxicill in 500 mg-potass ium clavulana te 125 mg tablet TAKE 1 TABLET BY MOUTH EVERY 12 HOURS DIRECTED FOR 10 DAYS 09/15 completed Not Available Not Available Not Available Pneumovax -23 25 mcg/0.5 mL injection syringe 09/29 completed Not Available Not Available Not Available metoprolo l tartrate 25 mg tablet 05/21 completed Not Available Not Available Not Available nitrofura ntoin monohydra te/macroc rystals 100 mg capsule Take 1 capsule every 12 hours by oral route for 5 days. 06/18 completed Not Available Not Available Not Available solifenac in 5 mg tablet TAKE 1 TABLET BY MOUTH ONCE DAILY 10/03 completed Not Available Not Available Not Available solifenac in 10 mg tablet TAKE 1 TABLET BY MOUTH ONCE DAILY active Not Available Not Available No t Available Boostrix Tdap 2.5 Lf unit-8 mcg-5 Lf/0.5 mL intramusc ular suspensio n active Not Available Not Available Not Available Calcium 600 08/01 completed Not Available Not Available Not Available multivita min 2020 active OTC Not Available Not Available Not Avai lable omeprazol e 20 mg tablet,de layed release 09/29 completed Not Available Not Available Not Available Bystolic 20 mg tablet TAKE 1 T BY MOUTH DAILY 09/29 completed Not Available Not Available Not Available OneTouch Verio test strips USE 1 STRIP TO CHECK GLUCOSE TWICE DAILY active Not Available Not Available No t Available Myrbetriq 25 mg tablet,ex tended release Take 1 tablet every day by oral route for 30 days. 11/01 completed Not Available Not Available Not Available Farxiga 10 mg tablet TAKE 1 TABLET BY MOUTH ONCE DAILY active Not Available Not Available No t Available Farxiga 5 mg tablet Take 1 tablet every day by oral route. 12/11 completed pt takes 10mg daily Not Available Not Available Not Available Jardiance 25 mg tablet Take 1 tablet every day by oral route for 30 days. 2024 active per 11/25/24 patient case / ds Not Available Not Available Not Available OneTouch Verio Flex Meter USE DIRECTED active Not Available Not Available No t Available Shingrix (PF) 50 mcg/0.5 mL intramusc ular suspensio n, kit 09/29 completed Not Available Not Available Not Available Fluarix Quad (PF) 60 mcg (15 mcg x 4)/0.5 mL IM syringe 09/29 completed Not Available Not Available Not Available OneTouch Delica Plus Lancet 33 gauge USE 1 TO CHECK GLUCOSE TWICE DAILY active Not Available Not Available No t Available Fluzone Quad (PF) 60 mcg (15 mcg x 4)/0.5 mL IM syringe active Not Available Not Available Not Available Flucelvax Quad (PF) 60 mcg (15 mcg x 4)/0.5 mL IM syringe active Not Available Not Available Not Available Mounjaro 2.5 mg/0.5 mL subcutane ous pen injector Inject by subcutan eous route for 28 days. active Not Available Not Available No t Available Vitals Date Recorded Body height Body mass index (BMI) Body weight Body temperature Heart rate Oxygen saturation Oxygen saturation in Arterial blood by Pulse oximetry Systolic blood pressure Diastolic blood pressure Provider Name and Address Organization Details Last Updated DateTime 5 177.8 cm 36.4 kg/m2 602878. 46 g 97.7 [degF] 68 /min 98 % 98 % 119 mm[Hg] 80 mm[Hg] Meghna anthony [place] [employer] [facility] [employer] 5 09:54:36 Date Recorded Body height Body temperature Respiratory rate Oxygen saturation Oxygen saturation in Arterial blood by Pulse oximetry Heart rate Systolic blood pressure Diastolic blood pressure Provider Name and Address Organization Details Last Updated DateTime 4 177.8 cm 99.1 [degF] 18 /min 99 % 99 % 60 /min 150 mm[Hg] 84 mm[Hg] Nathalia Yao RN [facility] [employer] 4 09:35:33 Date Recorded Body height Body temperature Respiratory rate Oxygen saturation Oxygen saturation in Arterial blood by Pulse oximetry Heart rate Systolic blood pressure Diastolic blood pressure Provider Name and Address Organization Details Last Updated DateTime 4 177.8 cm 99 [degF] 18 /min 96 % 96 % 60 /min 141 mm[Hg] 89 mm[Hg] Nathalia Yao RN [facility] [employer] [facility] 4 09:41:19 Date Recorded Body height Body mass index (BMI) Body weight Body temperature Heart rate Oxygen saturation Oxygen saturation in Arterial blood by Pulse oximetry Systolic blood pressure Diastolic blood pressure Provider Name and Address Organization Details Last Updated DateTime 4 177.8 cm 35.6 kg/m2 526160. 91 g 97.9 [degF] 60 /min 97 % 97 % 138 mm[Hg] 76 mm[Hg] Antionette Perry [employer] [facility] [employer] 4 10:09:11 Date Recorded Body height Provider Name an d Address Organization Details Last Updated DateTime 06/16/2024 177.8 cm Hanna wheeler Francesca [employer] [facility] [employer] [facility] 06/16/2024 10:28:41 Date Recorded Body mass index (BMI) Body weight Body temperature Heart rate Oxygen saturation Oxygen saturation in Arterial blood by Pulse oximetry Systolic blood pressure Diastolic blood pressure Provider Name and Address Organization Details Last Updated DateTime 4 35 kg/m2 853341. 54 g 97.4 [degF] 58 /min 98 % 98 % 136 mm[Hg] 82 mm[Hg] Meghna anthony [employer] [facility] [employer] 4 10:43:38 Social History Question Answer Notes LastModified by Organizat ion Details LastModified Time Tobacco Smoking Status Never Smoker Not Available [facility] 09/12/2022 02:34:54 What Is Your Level Of Caffeine Consumption? Moderate [id number] Information not available 09/12/2022 In The 14 Days Before Symptom Onset, Have You Had Close Contact With A Laboratory-confirm ed COVID-19 While That Case Was Ill? No [id number] Information not available 09/12/2022 In The 14 Days Before Symptom Onset, Have You Had Close Contact With A Person Who Is Under Investigation For COVID-19 While That Person Was Ill? No [id number] Information not available 09/12/2022 What Was The Date Of Your Most Recent Tobacco Screening? 01/31/2021 [id number] Information not available 09/12/2022 Sex: Unknown Functional Status Question Answer Note LastModified by Organizat ion Details LastModified Time What is your level of alcohol consumption? None Information not available 01/22/2023 Do you or have you ever used smokeless tobacco? 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 Never used electronic cigarettes [id number] Information not available 09/12/2022 Mental Status None recorded. Family History Relationship Description Onset Age of this Age Resolved Age Notes LastModified by Organization Details LastModified Time Father Diabetes mellitus [id number] Not available 09/12/2022 02:48:32 Father Hypertensive disorder [id number] Not available 09/12/2022 02:48:32 Father Heart disease [id number] Not available 09/12/2022 02:48:32 Maternal Grandmother Diabetes mellitus [id number] Not available 09/12/2022 02:48:32 Maternal Grandmother Hypertensive disorder [id number] Not available 09/12/2022 02:48:32 Maternal Grandmother Heart disease [id number] Not available 09/12/2022 02:48:32 Paternal Grandmother Hypertensive disorder [id number] Not available 09/12/2022 02:48:32 Mother Hypertensive disorder [id number] Not available 09/12/2022 02:48:32 Paternal Grandfather Hypertensive disorder [id number] Not available 09/12/2022 02:48:32 Paternal Uncle Hypertensive disorder [id number] Not available 09/12/2022 02:48:32 Brother Heart disease [id number] Not available 09/12/2022 02:48:32 Brother Cerebrovascu lar accident Not available 05/2023 10:43:45 Brother Hypertensive disorder Not available 2022 10:44:08 Brother Blood coagulation disorder Not available 2022 10:45:04 Father Arthritis Not available 01/22/2023 10:43:53 Father Family history of malignant neoplasm Not available 2022 10:44:37 Sister Hypertensive disorder Not available 2022 10:44:13 Mother Osteoporosis Not availa ble 01/22/2023 10:44:47 Mother Blood coagulation disorder Not available 2022 10:45:04 Medical History Condition Response ARTHRITIS Y HEADACHES/MIGRAINES Y OBESITY Y FIBROMYALGIA Y KIDNEY DISEASE Y DIABETES, TYPE Y ALLERGIES/HAYFEVER Y URINARY/BLADDER/KIDNEY PROBLEMS Y GOUT Y BACK / NECK PROBLEMS Y HYPERTENSION Y HIGH CHOLESTEROL / HYPERLIPIDEMIA Y Gynecological HistoryNo gynecological history recorded. Obstetrics History GPAL:G 0 P 0 0 0 0 Immunizations Vaccine Type Date Status Note Provider Nam e and Address Organization Details Recorded Time SARS-COV-2 (COVID-19) vaccine, UNSPECIFIED 1 completed Not Available [facility] 06/27/2023 06:08:56 Influenza, split virus, quadrivalent, preservative 1 completed Not Available [facility] 06/27/2023 06:08:56 COVID-19, mRNA, LNP-S, PF, 30 mcg/0.3 mL dose 1 completed Not Available [facility] 06/27/2023 06:08:56 COVID-19, mRNA, LNP-S, PF, 30 mcg/0.3 mL dose 1 completed Not Available [facility] 06/27/2023 06:08:56 Tdap 4 completed Not Available [facility] 06/27/2023 06:08:56 Influenza, split virus, quadrivalent, preservative 0 completed Not Available [facility] 06/27/2023 06:08:56 Past Encounters Encounter ID Performer Location Encounter Start Date Encounter Closed Date Diagnosis/Indication Diagnosis SNOMED-CT Code Diagnosis ICD10 Code Diagnosis Note [id number] Mitul Ding MD [facility] Internal [facility] [address] [place] [address] 10/03/2020 00:00:00 10/03/2020 13:37:13 [id number] Mitul Ding MD [facility] Internal Med [address] [place] [address] 01/31/2021 00:00:00 01/31/2021 11:00:46 [id number] Mitul Ding MD [facility] Internal Med [address] [place] [address] 05/31/2021 00:00:00 05/31/2021 11:25:22 [id number] Mitul Ding MD [facility] Internal Med [address] [address] 09/27/2021 00:00:00 09/27/2021 11:14:50 [id number] Mitul Ding MD [facility] Internal Med [address] [address] 03/08/2022 00:00:00 03/08/2022 09:55:38 [id number] [facility] _ATHENA_M IGRATION_ DEFAULT_1 _1 , 04/13/2022 00:00:00 04/13/2022 10:40:25 [id number] Mitul Ding MD [facility] Internal [address] [address] 06/18/2022 00:00:00 06/18/2022 13:14:06 [id number] Rayray Andrews NP S[facility] [address] [address] 08/20/2022 00:00:00 08/20/2022 17:02:34 [id number] Rayray Andrews NP [facility] [address] [address] 09/17/2022 14:00:54 09/17/2022 14:26:33 Recurrent urinary tract infection 827153895 N39.0 UA today shows tr LE. She is asymptomat ic. Will hold on culture at this time. Continue Theraworx wipes. TODD negative for source of infection. Follow-up in 6 weeks sooner if she develops symptoms of uti. [id number] Mitul Ding MD S_[facility] Internal Med [address] [facility] [place] [address] 10/29/2022 09:54:57 10/29/2022 10:26:57 Essential hypertension 41283753 I10 Under control Diabetes mellitus 838681 09 E11.9 start Farixga Edema 818946159 R60.9 Better with meds Asthma 182365648 J45.90 9 Under control Hyperlipidemia 04143887 E78.5 Stable Kidney disease 62117091 N08 GFR down Obesity 305287143 E66.9 Advised to lose weight Urinary incontinence 165 898881 R32 Better with meds Gout 53477067 M10.9 On meds Adult heal th examination 724407588 Z00.00 colonoscop y- cologuard 2014, willing to get colonoscop ymammogram - 03/05Dexa- 01/18/21FLU- 03/2021, 2COVID vacc- 09/15/20 & 10/06/20, #3 - 04/24/2021 Pain of le ft ankle joint 3185645712 0873905 M25.572 [id number] Rayray Andrews NP S_[facility] [address] [place] [address] 11/02/2022 11:21:11 11/02/2022 12:20:30 Recurrent urinary tract infection 361609727 N39.0 Ua negative for blood or infection. Follow-up in three months--so vilma if symptoms of uti. [id number] Mitul Ding MD S_[facility] Internal Med [address] [facility] [place] [address] 11/19/2022 14:29:40 11/19/2022 15:00:08 Essential hypertension 68453978 I10 need to restart meds,metop rolol and lisinopril Diabetes mellitus 036714 09 E11.9 Farixga [id number] José New DPM [facility] [place] [address] [facility] [address] [place] [address] 01/22/2023 10:28:37 01/22/2023 11:36:40 Pain in both feet 9588887976 5929000 M79.671 M79.672 obtain bilateral foot x-rays Mass of so ft tissue of left lower limb 9961730088 5347302 R22.42 anterior lateral ankle and along peroneal tendonrule out ganglion versus soft tissue mass with ultrasound Mass of so ft tissue of right lower limb 1691885093 3285268 R22.41 anterior lateral anklerule out ganglion versus soft tissue mass with ultrasound Tendinitis of left posterior tibial tendon 8143338225 18054 M76.822 obtain x-raysrice therapyedu cated on orthotics Congenital pes planus 23 662266 Q66.51 Q66.52 educated on orthotics Dystrophia unguium 92357 009 L60.3 Right great toenailDis cussed options with [facility] to see if the nail regrows with out dystrophy if continues to be problemati c despite nail avulsion will likely require total nail matrixecto my if sugars are within normal limits [id number] Rayray Andrews NP [facility] [place] [address] [facility] [address] [place] [address] 02/08/2023 09:03:08 02/08/2023 09:39:20 Recurrent urinary tract infection 212537587 N39.0 Ua negative for blood or infection. Continue Theraworx. Follow-up in 6 months--so vilma if symptoms of uti. Urinary symptoms 2317599 08 R39.9 Mild hesitancy. PVR 0 cc. Will continue to monitor at this time as symptoms are not particular ly bothersome . [id number] José New DPM [facility] [place] [address] [facility] [address] [place] [address] 02/26/2023 14:00:03 02/26/2023 14:53:48 Pain in both feet 7146361957 4673567 M79.671 M79.672 obtain bilateral foot x-raysx-ra ys reviewed with the [facility] secondary to bilateral pes planus foot deformitie s Mass of so ft tissue of right lower limb 2627493696 6806490 R22.41 bilateral anklesultr asounds reviewed positive for lipoma of both lower extremityt reatment options reviewed in detail patient denies surgical treatment and biopsy would like to continue with conservati ve therapy Dystrophia unguium 77803 009 L60.3 Right great toenailDis cussed options with the patientpat ient will return for total nail avulsion in [id number] Mitul Ding MD [facility] [address] [place] [address] 02/27/2023 09:37:21 02/27/2023 10:30:12 Essential hypertension 94723439 I10 under control Diabetes mellitus 542496 09 E11.9 labs then adjust meds Edema 011847472 R60.9 Better with meds Asthma 027773639 J45.90 9 Under control Hyperlipidemia 14199173 E78.5 Stable Kidney disease 55332703 N08 GFR improving Obesity 562822277 E66.9 Advised to lose weight Urinary incontinence 165 475024 R32 Better with meds Gout 78142623 M10.9 stable Adult heal th examination 445153259 Z00.00 colonoscop y- cologuard 2014, willing to get colonoscop y, will check with her insurance firstmammo gram- 03/05Dexa- 01/18/21FLU- 03/2021, 2COVID vacc- 09/15/20 & 10/06/20, #3 - 04/24/2021 Screening mammography 24 970520 Z12.31 Postmenopausal state 764 76717 Z78.0 Onychomyco sis of toenails 233092001 B35.1 seeing podiatry Melanocytic nevus 904626 001 D22.9 on bad wall, watch, call if changes [id number] José New DPM [facility] [address] [facility] [address] [place] [address] 06/13/2023 09:36:35 06/13/2023 13:59:33 Dystrophia unguium 20753220 L60.3 Right great toenail total nail avulsion performed todayrevie [facility] wound care postopmoni tor for signs of infection at present seek medical attention immediatel yFollow-up in 10 days [id number] José New DPM [facility] [place] [address] [address] 06/25/2023 08:49:41 06/25/2023 11:42:50 Dystrophia unguium 77904435 L60.3 Right great toenail total nail avulsion healingcon tinue wound care until completely healedRx ketoconazo le once healed apply daily to the nail platefollo w-up in 4 months Lipoma of skin 201277342 D17.30 bilateral ankleconti nue conservati ve optionsfol low-up in July for possible surgical evaluation [id number] Mitul Ding MD [facility] [address] [place] [address] 07/04/2023 10:06:08 07/04/2023 10:58:27 Essential hypertension 51582932 I10 under control Diabetes mellitus 228266 09 E11.9 lose more weight Edema 234920196 R60.9 Better with meds Asthma 846820639 J45.90 9 Under control Hyperlipidemia 29177081 E78.5 Stable Kidney disease 10817416 N08 GFR stable Obesity 107425695 E66.9 Advised to lose weight Urinary incontinence 165 227380 R32 Better with meds Gout 36836147 M10.9 stable Adult heal th examination 168962424 Z00.00 colonoscop y- cologuard 2014, willing to get colonoscop y, will check with her insurance firstmammo gram- 03/27/2023 Dexa- 03/27/2023 FLU- 2022- yuritCOV ID vacc- 09/15/20 & 10/06/20, #3 - 04/24/2021 Melanocytic nevus 516171 001 D22.9 on abd wall, watch, no change [id number] José New DPM [facility] [address] [address] 08/01/2023 08:50:31 08/12/2023 14:03:23 Soft tissue lesion of lower leg and ankle 401239712 M79.9 bilateral anklesultr asounds reviewed positive for lipoma of both lower extremityt reatment options reviewed in detail patient denies surgical treatment and biopsy would like to continue with surgery, obtain clearance all risks, benefits, complicati ons reviewed with the patient to her complete full understand ing. Patient elects to proceed with surgery. We will plan for surgical excision of the lesions with biopsy. Patient will obtain surgical clearance and will return to the office if not performed within the next 30 days for review. no guarantees were given or implied.Al l questions and concerns were addressed to the patient full understand ing.follow up post-surg [id number] Mitul Ding MD [facility] [address] [place] [address] 08/07/2023 10:40:06 08/07/2023 11:33:17 Pre-surgery evaluation [id number] Z01.818 labs good 07/06, EKG done today showed sinus bradycardi a, likely due to metoprolol low risk Sleep apnea 39855381 G47 .30 on cpap Asthma 674480355 J45.90 9 Under control, no inhaler needed [id number] José New DPM [facility] [place] [address] [facility] [address] [place] [address] 08/27/2023 11:19:11 09/02/2023 10:27:46 Postoperative care 349986003 Z48.89 Dressings change. Keep dressings clean intact. May weight bear short distances Elevation when it rest For signs of infection if presents seek medical attention immediatel y. Follow up in one week [id number] José New DPM [facility] [place] [address] [facility] [address] [place] [address] 09/05/2023 10:02:19 09/05/2023 10:29:41 Postoperative care 094507100 Z48.89 no more compressio n to wound area just keep clean and apply band aid Keep dressings clean intact. May weight bear short distances Elevation when it rest For signs of infection if presents seek medical attention immediatel y. Follow up in one week Cellulitis of right foot [id number] 8190504 L03.115 likely secondary to compressio n dressings but will start abx [id number] José New DPM [facility] Podiatry Elizabeth [address] [place] [address] 09/12/2023 10:22:05 09/12/2023 16:53:39 Postoperative care 453068434 Z48.89 mild compressio n to incision areas dailyeleva te when at restMay weight bear short distancesm onitor For signs of infection if presents seek medical attention immediatel y.Follow up in one week Cellulitis of right foot [id number] 1450212 L03.115 resolving Hematoma of left foot 11 03877992 8641874 S90.32XA culturedfi villa abx therapyasp iration of hematoma to reduce underlying pressure of skin and prevent wound dehiscence Hematoma o f right foot 2607126800 9844301 S90.31XA as above Cellulitis of left foot [id number] 7806840 L03.116 possible secondary to hematomaco nt abxculture s today [id number] José New DPM [facility] Podiatry [place] [address] [address] 09/19/2023 16:42:45 09/24/2023 10:08:24 Cellulitis of left foot 6836065144 2674825 L03.116 finish antibiotic sresolved Postoperative care 56978 9007 Z48.89 hematoma resolvedfo llow-up 1 week for suture remove [id number] José New DPM [facility] Podiatry [place] [address] [place] [address] 09/24/2023 15:32:35 10/14/2023 09:18:23 Postoperative care 330695998 Z48.89 hematoma resolvedfo llow-up 1 week for suture remove Hematoma of left foot 11 85929229 5691739 S90.32XA cont wound care daily [id number] José New DPM [facility] W[facility] Care [address] [place] [address] 09/25/2023 15:04:34 09/25/2023 16:35:15 Postoperative care 193447896 Z48.89 hematoma resolved rightsteri intact Dehiscence of surgical wound 87795504 T81.30XA left lower leg/anklec ont betadine wet to dry dressingor quinten wound vacfollow up in wound vac [id number] BRITT[facility] [address] [place] [address] 10/02/2023 14:06:00 10/08/2023 11:44:16 Postoperative care 788331736 Z48.89 hematoma resolved right and healedster i intact reapplied Dehiscence of surgical wound 84086346 T81.30XA left lower leg/ankleW ound VAC applied todayconti nue to monitor for infection at present seek medical attention immediatel yFollow-up in 1 week [id number] [facility] [address] [place] [address] 10/07/2023 09:11:10 10/09/2023 04:12:38 [id number] BRITTANEY [facility] [address] [place] [address] 10/09/2023 08:50:33 10/09/2023 11:02:42 Dehiscence of surgical wound 34239520 T81.30XA left lower leg/anklew ound debrided todayWound VAC [facility] nu to monitor for infection at present seek medical attention immediatel yFollow-up in 1 week [id number] [facility] [address] [place] [address] 10/14/2023 09:12:13 10/16/2023 04:08:04 [id number] José New DPM [facility] [address] [place] [address] 10/16/2023 09:16:48 10/16/2023 17:03:24 Dehiscence of surgical wound 74325535 T81.30XA left lower leg/anklew ound debrided And surgically closed with wound VAC applicatio nfollow-up next [facility] for infection at present seek medical attention immediatel yFollow-up in 2 weeks [id number] [facility] [address] [place] [address] 10/21/2023 09:20:28 10/22/2023 12:25:37 [id number] José New DPM [facility] [address] [place] [address] 10/30/2023 09:22:34 10/30/2023 10:26:11 Dehiscence of surgical wound 34666149 T81.30XA left lower leg/anklew ound debridedsu tures removedcon tinue daily dressingSt mark-Strips applied to coapted wound edgesconti nue to monitor for infection at present seek medical attention immediatel yFollow-up in 1 week [id number] Mitul Ding MD [facility] [address] [place] [address] 11/05/2023 10:07:31 11/05/2023 10:47:18 Essential hypertension 12717911 I10 watch Diabetes mellitus 373997 09 E11.9 lose more weight Edema 180287921 R60.9 Better with meds Asthma 994427971 J45.90 9 Under control Hyperlipidemia 64177090 E78.5 Stable Kidney disease 71483011 N08 GFR stable Obesity 825004068 E66.9 Advised to lose weight Urinary incontinence 165 363731 R32 Better with meds Gout 75911959 M10.9 stable Adult heal th examination 017094381 Z00.00 colonoscop y- cologuard 2014, willing to get colonoscop y, will check with her insurance first, discussedm ammogram- 03/27/2023 Dexa- 03/27/2023 FLU- 2022- [facility] ID vacc- 09/15/20 & 10/06/20, #3 - 04/24/2021 Onychomyco sis of toenails 925806766 B35.1 seeing podiatry [id number] José New DPM [facility] [address] [place] [address] 11/06/2023 08:54:07 11/06/2023 11:17:17 Dehiscence of surgical wound 61799981 T81.30XA left lower leg/anklew ound debrided and sutured closesteri -strip removedcon tinue daily dressingSt mark-Strips applied to coapted wound edgesconti nue to monitor for infection at present seek medical attention immediatel yFollow-up in 1 week [id number] José New DPM [facility] ay Wound Care [address] [place] [address] 11/20/2023 09:22:18 11/20/2023 15:08:18 Dehiscence of surgical wound 36708832 T81.30XA left lower leg/anklew ound debridedco ntinue daily dressingco ntinue to monitor for infection at present seek medical attention immediatel yFollow-up in 1 week [id number] José New DPM [facility] Wound Care [address] [place] [address] 11/27/2023 09:30:54 11/27/2023 15:26:48 Dehiscence of surgical wound 59838637 T81.30XA left lower leg/anklec ontinue daily dressingco ntinue to monitor for infection at present seek medical attention immediatel yFollow-up in 2wk [id number] José [facility] [address] [place] [address] 12/11/2023 09:26:02 12/11/2023 14:26:51 Dehiscence of surgical wound 45950608 T81.30XA left lower leg/ankles uture removalSte ri-Strips applied- also dispensed if comes off replaceno soaking for 2 weeksmay showercont inue daily dressingco ntinue to monitor for infection at present seek medical attention immediatel yFollow-up in 2wk [id number] José New DPM [facility] [address] [place] [address] 12/25/2023 09:27:39 12/26/2023 10:07:31 Dehiscence of surgical wound 56959799 T81.30XA left lower leg/anklem ay showerMay discontinu e dressingsM ay return to normal shoe gearFollow -up as needed [id number] MD CARLOS EDUARDO [facility] [address] [facility] [place] [address] 03/10/2024 10:01:24 03/10/2024 10:40:56 Essential hypertension 54604308 I10 better Diabetes mellitus 193218 09 E11.9 she can get benefit from Mounjaro, Edema 033096027 R60.9 Better with meds Asthma 344037544 J45.90 9 Under control Hyperlipidemia 44206206 E78.5 Stable Kidney disease 63188012 N08 GFR stable Obesity 028277056 E66.9 Advised to lose weight, watch diet Urinary incontinence 165 444052 R32 Better with meds Gout 52272375 M10.9 stable Adult heal th examination 850567215 Z00.00 Colonoscop y- cologuard 2014, willing to get colonoscop y, wants to waitMammog angi- 03/27/2023 Dexa- 03/27/2023 FLU- 2022- [facility] vacc- 09/15/20 & 10/06/20, #3 - 04/24/2021 Onychomyco sis of toenails 568299802 B35.1 seeing podiatry Screening mammography 24 847057 Z12.31 [id number] Mitul Ding MD [facility] Internal [facility] [address] [facility] [place] [address] 06/16/2024 10:26:37 06/16/2024 11:51:21 Mammography abnormal 805254238 R92.8 NEEDS BIOPSY Essential hypertension 91841032 I10 under control Edema 529700306 R60.9 Better with meds Asthma 801837971 J45.90 9 Under control Hyperlipidemia 56078054 E78.5 Stable Kidney disease 12103135 N08 GFR stable Obesity 446713870 E66.9 Advised to lose weight, watch diet Urinary incontinence 165 205557 R32 Better with meds Gout 34322490 M10.9 stable Adult heal th examination 726191219 Z00.00 Colonoscop y- cologuard 2014, willing to get colonoscop y, wants to waitMammog angi- 06/08/2024 Dexa- 03/27/2023 FLU- 04/2024- [facility] ID vacc- 09/15/20 & 10/06/20, #3 - 04/24/2021 Onychomyco sis of toenails 394741729 B35.1 seen podiatry Diabetes mellitus 003257 09 E11.9 she can get benefit from Mounjaro, she will inquir from her pharmacy [id number] Mitul Ding MD [facility] [address] [place] [address] 10/15/2024 09:39:06 10/15/2024 10:17:47 Diabetes mellitus 63299202 E11.9 under control Essential hypertension 18543008 I10 under control Edema 770718020 R60.9 Better with meds, may cut down the dose to 20 mg Asthma 058221959 J45.90 9 Under control Hyperlipidemia 64676336 E78.5 Stable Kidney disease 19641678 N08 GFR is low after getting dye for radiology Obesity 076469388 E66.9 Advised to lose weight, watch diet Urinary incontinence 165 544385 R32 fair Gout 60298016 M10.9 stable Adult heal th examination 427651956 Z00.00 Colonoscop y- cologuard 2014, willing to get colonoscop y, wants to waitMammog angi- 06/08/2024 cancer tumor removed* 10/06Dexa- 03/27/2023 FLU- 04/2024- yuritCOV ID vacc- 09/15/20 & 10/06/20, #3 - 04/24/2021 Onychomyco sis of toenails 993092421 B35.1 seen podiatry Malignant tumor of breast 612366369 C50.011 seeig oncology Health Concerns Section Related Observation LastModified by Organization Detai ls LastModified Time None Recorded Concern Status LastModified by Organization Details LastModified Time None Recorded Advance Directives Directive None Recorded Payers Encounter Date Sequence Insurance Name Policy Number Policy Herrera Covered Member ID Herrera Member ID Guarantor Name 12/11/2023 1 [facility] (MEDICAID HMO) [id number] Kaylyn Clarke [id number] Kaylyn Clarke 12/25/2023 1 [facility] (MEDICAID HMO) [id number] Kaylyn Clarke [id number] Kaylyn Clarke 03/10/2024 1 [facility] (MEDICAID HMO) [id number] Kaylyn Clarke [id number] Kaylyn Clarke 06/16/2024 1 [facility] (MEDICAID HMO) [id number] Kaylyn Clarke [id number] Kaylyn Clarke 10/15/2024 1 [facility] (MEDICAID HMO) [id number] Kaylyn Clarke [id number] Kaylyn Clarke Notes Date Note Type Note Provider Name and Address Organization Details Recorded Time 12/11/2023 text/html . Patient is a 63-year-old female who returns the office status post excision of lipoma to the lateral ankles which she has underwent suture closure of the left ankle wound secondary to mild wound dehiscence. patient is here for suture removal the wound is healed. Patient denies any other complaints pain or drainage. José New DPM [address], [place], [address], [employer] 12/11/2023 09:47:36 12/25/2023 text/html . Patient is a 63-year-old female who presents the office with complaints of a healed wound to the left lateral foot ankle area. Patient underwent excision of a lipoma with wound dehiscence which is completely healed she has been healed for the last 2 weeks she had the sutures removed she denies any swelling or new wounds or signs of infection. Patient is happy with the results. Patient denies any other complaints. José New DPM [address], [place], [address], [employer] 12/25/2023 10:13:26 03/10/2024 text/html Here for a follo w up, compliant with meds.PT IS NOT FASTING DM- Diet is under control, accu checks are 120-130 in the mornings, A1c 7.4 ( with Dr. Myrick)Last eye exam- appt in Mar 2023- [facility] visionNo numbness or tinglingMeds- Farxiga 10mg daily, Glimepride 2 mg am, 1 am Neuropathy- get numbness on the left heel, mild, watch HTN- betterMeds- Lisinopril 40 mg qd, Metoprolol 100 mg bid Obesity- has lost 7lbs, can not do much exercises due to knee pain, advised to watch dietEdema- better with medsMeds- Furosemide 40 mg qd, Potassium ER 10MEQ BIDAsthma- no meds needed Hyperlipidemia- On meds, Trig were high 194Meds- Simvastatin 20mg daily Gout- under controlMeds- Allopurinol 100 mg qdArthritis- not on meloxicam due to kidney problem, tylenol prnAll rhinitis- on montelukast and it helpMeds- Montelukast 10 mg qdOveractive bladder- meds helping, no side effects , seen urology for recurrent utiMeds- Solifenacin 10 mg qd sleep apnea- sleep study 2017, CPAP- compliant Kidney disease - Sees Dr. Myrick. now 60Meds- Vitamin D 50,000 once a week Mitul Ding MD [address] [facility] [facility] [address], [place], [address], [place] [facility] [employer] 03/10/2024 10:39:48 06/16/2024 text/html Here for a follo w up, compliant with meds.PT IS NOT FASTING (yara) SHE HAD ABN MAMMOGRAM 09/07, NEEDS RIGHT BREAST BIOPSY DM- Diet is under control, accu checks are 120-130 in the mornings, A1c 7.4 ( with Dr. Myrick)Last eye exam- Mar 2024- [facility] visionNo numbness or tinglingNo hypoglycemiaMeds- Farxiga 10mg daily, Glimepride 2 mg am, 1 am Neuropathy- get numbness on the left heel, mild, watch HTN- under controlMeds- Lisinopril 40 mg qd, Metoprolol 100 mg bid Obesity- has lost 7lbs, can not do much exercises due to knee pain, advised to watch dietEdema- better with medsMeds- Furosemide 40 mg qd, Potassium ER 10MEQ BIDAsthma- no meds needed Hyperlipidemia- On meds, Trig were high 194, nees labsMeds- Simvastatin 20mg daily Gout- under controlMeds- Allopurinol 100 mg qdArthritis- not on meloxicam due to kidney problem, tylenol prnAll rhinitis- on montelukast and it helpMeds- Montelukast 10 mg qdOveractive bladder- meds helping, no side effects , seen urology for recurrent utiMeds- Solifenacin 10 mg qd sleep apnea- sleep study 2016, CPAP- compliant, feels better Kidney disease - Sees Dr. Myrick. now 60Meds- Vitamin D 50,000 once a week Mitul Ding MD [address] [facility] [address], [place], [address], [place] [facility] [employer] 06/16/2024 11:33:06 10/15/2024 text/html Here for a follo w up, compliant with meds. Breast cancer- diagnosed 2023, ONCOLOGIST started her on anastrozole for estrogen tona, which she will start on the 11/03/24SHE HAD ABN MAMMOGRAM 09/07, s/p lumpectomy 09/16/24. No other treatment, in a study group. DM- Diet is under control, accu checks are 120-130 in the mornings, A1c 6.8 in Last eye exam- Mar 2024- [facility] visionFoot exam- 11/06Meds- Farxiga 10mg daily, Glimepride 2 mg am, 1 am Neuropathy- get numbness on the left heel, mild, HTN- under controlMeds- Lisinopril 40 mg qd, Metoprolol 100 mg bid Obesity- GAINED 10Lbs, can not do much exercises due to knee pain, advised to watch dietEdema- better with medsMeds- Furosemide 40 mg qd, Potassium ER 10MEQ BIDAsthma- no meds needed Hyperlipidemia- On meds, Trig were high 194, nees labsMeds- Simvastatin 20mg daily Gout- under controlMeds- Allopurinol 100 mg qdArthritis- not on meloxicam due to kidney problem, tylenol prnAll rhinitis- on montelukast and it helpMeds- Montelukast 10 mg qdOveractive bladder- meds helping, no side effects , seen urology for recurrent utiMeds- Solifenacin 10 mg qd sleep apnea- sleep study 2017, CPAP- compliant, Kidney disease - Sees Dr. Myrick. now 44, was 60Meds- Vitamin D 50,000 once a week Mitul Ding MD [address], [place], [address], [place] [facility] 10/15/2024 10:16:49 OBGyn Episode No OBEpisode recorded.
--- OUTSIDE RECORDS SUMMARY | 2024-12-21 08:53 | XMS_ITS ---
Author Organization [facility] Address [address] [place] [address] Care Team Providers Care Vice President Education Name Role Phone Ramez Geronimo Unavailable [phone] Problems Problem Type SNOMED Code ICD Code Onset Dates Problem Status W/U Status Risk Notes Problem Secondary hyperparathyroidism of renal origin (52024423) Secondary hyperparathyroidism of renal origin (N25.81) Active confirmed Problem Abnormal results of thyroid function studies (R94.6) Active confirmed Encounters Encounter Location Date Provider Diagnosis [facility] [address] [facility] [address] [place] [address] 09/25/2024 Geronimo Myrick Chronic kidney disea se, [...] Abnormal results of thyroid function studies R94.6 Assessments Encounter Date Diagnosis (ICD Code) Assessment Notes Treatment Notes Treatment Clinical Notes Section Notes 09/25/2024 Chronic kidney disea se, stage 3a (ICD-10 - N18.31) 09/25/2024 Essential (primary) hypertension (ICD-10 - I10) 09/25/2024 Other microscopic hematuria (ICD-10 - R31.29) 09/25/2024 Renal osteodystrophy (ICD-10 - N25.0) 09/25/2024 Secondary hyperparathyroidism of renal origin (ICD-10 - N25.81) 09/25/2024 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 :1960 A ge:64 Y S ex:Female Date:09/25/2024 Address:[address] [place] [address] Subjective: * Chief Complaints: * * Medical History: Objective: * Vitals: Assessment: * Assessment: 1. C hronic kidney disease, stage 3a - N18.31 (Primary) 2 . E ssential (primary) hypertension - I10 3 . O ther microscopic hematuria - R31.29 ?4. R enal osteodystrophy - N25.0 5 . S econdary hyperparathyroidism of renal origin - N25.81 6 . H yperuricemia without signs of inflammatory arthritis and tophaceous disease - E79.0 7 . T ype 2 diabetes mellitus with hyperglycemia - E11.65 8 . V itamin D deficiency, unspecified - E55.9 9 . U rinary tract infection, site not specified - N39.0 1 0. A bnormal results of thyroid function studies - R94.6 Plan: * Treatment: * Billing Information: * Visit Code: 20508 Office Visit, Est Pt., Level 4. * Procedure Codes: * Electronic signature of Rosa Myrick MD on 12/21/2024 at 08:52 AM CDT Sign off status: Pending * Provider: Delfino LAWSON MD, F.A.C.P, F.A.S.N. Date: 0 09/25/2024 Generated for Printing/Fachantaleg/eTransmitting on: 0 12/21/2024 08:52 AM CDT
[2024-12-21 09:08] LABS: Add Urine Microscopic? NO; Appearance Urine Clear (Clear); Bilirubin Urine Negative (Negative); Blood Urine Negative (Negative); Color Urine Yellow (Yellow); Glucose Urine UA 3+ mg/dL (Negative); Ketones Urine Negative (Negative); Leukocyte Esterase Ur Negative LEU/UL (Negative); Nitrate Urine Negative (Negative); Protein Urine Negative (Negative); Specific Grav Ur 1.031 (1.001-1.035); Urobilinogen Urine 0.2 mg/dL (<2.0); pH Urine 5.5 (5.0-9.0)
[2024-12-21 09:39] LABS: Alanine Aminotransferase 36 U/L (6-35); Albumin Level 4.2 g/dL (3.5-5.1); Alkaline Phosphatase 70 U/L (38-126); Anion Gap 9 mmol/L (4-12); Aspartate Amino Transferase 33 U/L (14-36); Bilirubin,Total 0.6 mg/dL (0.2-1.3); Blood Urea Nitrogen 20 mg/dL (7-17); Calcium 10.2 mg/dL (8.4-10.2); Carbon Dioxide 27 mmol/L (22-30); Chloride 104 mmol/L (98-107); Estimated Glomerular Filt Rate 57; Glucose 169 mg/dL (65-110); Potassium 4.4 mmol/L (3.4-5.0); Sodium 140 mmol/L (137-145); Uric Acid 3.8 mg/dL (2.5-7.5)
[2024-12-21 09:48] LABS: MALB Creatinine Ratio 10.6 mg/g (0-30); Microalbumin Urine Random 9.3 mg/L (0-16.7)
[2024-12-21 09:58] LABS: Hemoglobin A1C 7.1 % (<5.7)
[2024-12-21 10:12] LABS: Parathyroid Intact 14.8 pg/mL (14.5-75.2)
== END 2024-12-21 08:31 | disposition home or self-care (01) ==
PROVIDERS: PCP Internal Medicine; Visit Provider Specialist
DX: I13.0 Hypertensive heart and chronic kidney disease with heart failure and stage 1 through stage 4 chronic kidney disease, or unspecified chronic kidney disease (principal); E11.22 Type 2 diabetes mellitus with diabetic chronic kidney disease; N18.30 Chronic kidney disease, stage 3 unspecified; I50.9 Heart failure, unspecified; E55.9 Vitamin D deficiency, unspecified; R35.0 Frequency of micturition; E21.3 Hyperparathyroidism, unspecified; Z79.4 Long term (current) use of insulin
CPT/HCPCS: 36415; 80053; 81003; 82043; 82306; 83036; 83970; 84443; 84550